=== PATIENT | female | born 1975 | race African-American/Black ===

== ENCOUNTER 2018-09-27 21:00 | Emergency (ER) | payer OTHER ==
[2018-09-27 21:22] VITALS: BP 142/103; PULSE 77; TEMP 98.5; BMI 33.3
[2018-09-27 21:45] LABS: HCG,QUALITATIVE URINE Negative
[2018-09-27] MEDS ORDERED: CEPHALEXIN MONOHYDRATE 500 MG CAPSULE (UD) PO ONE (22:00)
[2018-09-27] MEDS ORDERED: CEPHALEXIN MONOHYDRATE 500 MG CAPSULE (UD) ONE (22:00)
[2018-09-27 22:01] LABS: EPITHELIAL CELLS FEW /hpf
--- NOTE | 2018-09-27 22:01 | PDOC ---
Documentation entered by Fredo Yañez SCRIBE, acting as scribe for Rona Baker MD. Rona Baker MD: This documentation has been prepared by the Otilio hughes Daniel, SCRIBE, under my direction and personally reviewed by me in its entirety. I confirm that the documentation accurately reflects all work, treatment, procedures, and medical decision making performed by me. History of Present Illness - General Chief Complaint: Urinary Problem Stated Complaint: PELVIS PAIN History Source: Patient Exam Limitations: No Limitations - History of Present Illness Initial Comments: 09/27/18 21:59 The patient is a 43 year old female with a past medical history of HTN and recent UTI (3 weeks ago) here today for evaluation of suprapubic pain. The patient reports that she has had 3 days of sharp suprapubic pain that occurs more during the night. She notes having 2 bowel movements today that were loose. Patient denies headache, lightheadedness. Denies fever, chills. Denies chest pain, shortness of breath. Denies nausea, vomiting. Allergies: NKA Surgical history: Gastric sleeve, cholecystectomy (2006) PCP: Genesis Yin OB: Dulce Gr Past History - Past Medical History Allergies/Adverse Reactions: Allergies Allergy/AdvReac Type Severity Reaction Status Date / Time No Known Allergies Allergy Verified 09/27/18 21:04 Home Medications: Ambulatory Orders Cephalexin [Keflex] 500 mg PO TID #21 capsule 09/27/18 Olmesartan/Hydrochlorothiazide [Benicar Hct 40-12.5 mg Tablet] 1 each PO DAILY 09/27/18 HTN: Yes (NO MEDS X 2 DAYS) - Surgical History Cholecystectomy: Yes - Immunization History Immunization Up to Date: Yes - Suicide/Smoking/Psychosocial Hx Smoking Status: No Smoking History: Never smoked Number of Cigarettes Smoked Daily: 0 Cigars Per Day: 0 Hx Alcohol Use: No Drug/Substance Use Hx: No Substance Use Type: None Review of Systems - Review of Systems Able to Perform ROS?: Yes Comments:: 09/27/18 21:59 GENERAL/CONSTITUTIONAL: No fever or chills. No weakness. HEAD, EYES, EARS, NOSE AND THROAT: No change in vision. No ear pain or discharge. No sore throat. CARDIOVASCULAR: No chest pain or shortness of breath. RESPIRATORY: No cough, wheezing, or hemoptysis. GASTROINTESTINAL: +suprapubic pain. No nausea, vomiting, diarrhea or constipation. GENITOURINARY: No dysuria, frequency, or change in urination. MUSCULOSKELETAL: No joint or muscle swelling or pain. No neck or back pain. SKIN: No rash NEUROLOGIC: No headache, vertigo, loss of consciousness, or change in strength/ sensation. ENDOCRINE: No increased thirst. No abnormal weight change. HEMATOLOGIC/LYMPHATIC: No anemia, easy bleeding, or history of blood clots. ALLERGIC/IMMUNOLOGIC: No hives or skin allergy. *Physical Exam - Vital Signs Last Vital Signs Temp Pulse Resp BP Pulse Ox 98.5 F 77 16 142/103 H 100 09/27/18 21:09/27/18 21:09/27/18 21:09/27/18 21:09/27/18 21:01 - Physical Exam Comments: 09/27/18 22:00 GENERAL: Awake, alert, and fully oriented, in no acute distress HEAD: No signs of trauma EYES: PERRLA, EOMI, sclera anicteric, conjunctiva clear ENT: Auricles normal inspection, hearing grossly normal, nares patent, oropharynx clear without exudates. Moist mucosa NECK: Normal ROM, supple, no lymphadenopathy, JVD, or masses LUNGS: Breath sounds equal, clear to auscultation bilaterally. No wheezes, and no crackles HEART: Regular rate and rhythm, normal S1 and S2, no murmurs, rubs or gallops ABDOMEN: +suprapubic tenderness to palpation. Soft, normoactive bowel sounds. No guarding, no rebound. No masses EXTREMITIES: Normal range of motion, no edema. No clubbing or cyanosis. No cords, erythema, or tenderness NEUROLOGICAL: Cranial nerves II through XII grossly intact. Normal speech, normal gait SKIN: Warm, Dry, normal turgor, no rashes or lesions noted. ED Treatment Course - ADDITIONAL ORDERS Additional order review: Laboratory Results 09/27/18 21:27 Urine Color Yellow Urine Appearance Clear Urine pH 6.0 Urine Protein Negative Urine Glucose (UA) Negative Urine Ketones Negative Urine Blood 2+ H Urine Nitrite Positive H Urine Bilirubin Negative Urine Urobilinogen 0.2 Ur Leukocyte Esterase Trace H Urine HCG, Qual Negative Medical Decision Making - Medical Decision Making 09/27/18 22:03 Pt has a nitrite positive UTI and she will be treated with keflex 500TID x 7 days *DC/Admit/Observation/Transfer Diagnosis at time of Disposition: UTI (urinary tract infection) - Discharge Dispostion Disposition: HOME Condition at time of disposition: Stable Decision to Admit order: No - Prescriptions Prescriptions: Cephalexin [Keflex] 500 mg PO TID #21 capsule - Referrals Referrals: Genesis Yin [Primary Care Provider] - - Patient Instructions Printed Discharge Instructions: Urinary Tract Infection - Post Discharge Activity
== END 2018-09-27 22:06 | disposition home or self-care (01) ==
LOC: FER 21:00
DX: N39.0 Urinary tract infection, site not specified (principal); I10 Essential (primary) hypertension
CPT/HCPCS: 81003; 81015; 84703; 99282-25

== ENCOUNTER 2023-08-13 01:12 | Emergency (ER) | payer SELFPAY ==
[2023-08-13 01:20] VITALS: BP 150/111; PULSE 108; RESP 18; TEMP 100.7; BMI 29.9
== END 2023-08-13 01:40 | disposition home or self-care (01) ==
LOC: FER 01:12
DX: R50.9 Fever, unspecified (principal); B34.9 Viral infection, unspecified; Z20.822 Contact with and (suspected) exposure to COVID-19
CPT/HCPCS: 0241U-QW; 99283-25